=== PATIENT | female | born 1935 | race Caucasian/White ===

== ENCOUNTER → 2017-06-06 | Outpatient (CLI) | payer MEDICARE, OTHER ==
[~2017-06-06] VITALS: Ht 154.9 cm; Wt 65.8 kg
[~2017-06-06] MED LIST: LIDOCAINE 1% INJ 20 ML (XYLOCAINE) VIAL INJ ONE
[2017-06-06 09:09] VITALS: BP 120/80
[2017-06-06 09:42] VITALS: BP 118/78
--- NOTE | 2017-06-06 11:11 | Diagnostic Imaging Report ---
EXAMINATION: US-guided fine needle biopsy-thyroid. INDICATION: Right thyroid nodule. CONSENT: Informed consent was obtained from the patient. The risks, benefits, potential complications and alternatives were reviewed and all questions answered to the patient's satisfaction. FINDINGS: Hypoechoic thyroid nodules with slight internal heterogeneity. PROCEDURE: After sterile preparation and draping, 1% lidocaine was utilized for local anesthesia. A 25-gauge hypodermic needle is introduced into the right thyroid nodule under live ultrasound guidance. After confirming adequate positioning with saved ultrasound images, multiple passes of fine needle aspiration is performed and repeated 5 times. The patient tolerated the procedure well with no immediate complications. IMPRESSION: Successful US-guided fine needle aspiration biopsy of right thyroid nodule. Dictated by: Dictated on workstation # [id number]
== END ==
LOC: RAD 08:26
PROVIDERS: ATTEND Surgery
DX: E04.2 Nontoxic multinodular goiter (principal)
CPT/HCPCS: 76942

== ENCOUNTER 2022-05-23 13:32 | Outpatient (RCR) | payer MEDICARE, OTHER | END 2022-05-31 | disposition home or self-care (01) | PROVIDERS: ATTEND Family Medicine | DX: R06.00 Dyspnea, unspecified (principal); U09.9 Post COVID-19 condition, unspecified ==